=== PATIENT | male | born 1970 | race Caucasian/White ===

== ENCOUNTER 2024-05-15 18:30 | Inpatient (IN) | payer OTHER ==
[2024-05-15 21:16] VITALS: BMI 37.7
[2024-05-15] MEDS: HYDROcodone/Acetaminophen 10/325 mg Tablet PO PRN (22:04)
[2024-05-15] MEDS: Lactated Ringer's 1,000 ML IV SCH (22:05)
[2024-05-16] MEDS: Pantoprazole DR 40 MG TAB PO SCH ×2 (00:23→08:01)
[2024-05-16 05:54] LABS: Hematocrit 42.3 % (42.0-52.0); Hemoglobin 13.3 g/dL (14.0-18.0); Mean Corpuscular HGB CONC 31.4 g/dL (32.0-36.0); Mean Corpuscular Hemoglobin 29.8 pg (27.0-31.0); Mean Corpuscular Volume 94.6 fL (78.0-98.0); Mean Platelet Volume 9.8 fL (7.4-10.4); Platelet Count 185 10x3/uL (130-400); RBC Distribution Width 15.2 % (11.5-14.5); Red Blood Cell (RBC) Count 4.47 mill/uL (4.70-6.10)
[2024-05-16 06:04] LABS: Anion Gap 10 mmol/L (10-20); BUN (Urea Nitrogen) 19 mg/dL (8.4-25.7); Calc. Creatinine Clearance 87 mL/min (70-130); Calcium 9.3 mg/dL (7.8-10.44); Carbon Dioxide 27 mmol/L (22-29); Chloride 103 mmol/L (98-107); Estimated GFR 67; Glucose 129 mg/dL (70-105); Potassium 4.3 mmol/L (3.5-5.1); Sodium 136 mmol/L (136-145)
[2024-05-16 06:45] LABS: Anisocytosis MODERATE=16-30 cells HPF (0-5); Band 6 % (5-11); Burr Cells MODERATE= 6-15 cells HPF (0-1); Eosinophils 2 % (0-10); Lymphocytes 19 % (21-51); Macrocytosis SLIGHT = 6-15 cells HPF (0-5); Neutrophil 68 % (42-75); Ovalocytes SLIGHT = 2-5 cells HPF (0-1); Platelet Adequacy Comment Platelets Normal; Poikilocytosis SLIGHT = 6-15 cells HPF (0-5); Polychromasia SLIGHT = 2-3 cells HPF (0-2); Smudge Cells 7.8 %
[2024-05-16] MEDS: Morphine 2 MG/ML VIAL SLOW IVP SCH (10:35)
[2024-05-16 11:13] VITALS: BMI 37.7
[2024-05-16] MEDS: Ondansetron PF 4 MG/2 ML Vial IVP PRN (20:08)
[2024-05-17] MEDS: Acetaminophen 325 MG TAB PO PRN (02:32)
[2024-05-17] MEDS: Sodium Chloride 0.9% 1,000 ML IV SCH (08:55)
[2024-05-17 12:14] VITALS: BP 124/77; TEMP 97.8
== END 2024-05-17 17:33 | DRG 841 ==
LOC: EEVIPCON → 2SW 20:55 → OBSVTOIN 05-16 15:35
PROVIDERS: ADMIT Family Medicine; ATTEND Internal Medicine
DX: C92.10 Chronic myeloid leukemia, BCR/ABL-positive, not having achieved remission (principal); N17.9 Acute kidney failure, unspecified; E87.5 Hyperkalemia; E03.9 Hypothyroidism, unspecified; I10 Essential (primary) hypertension; Z79.899 Other long term (current) drug therapy; Z88.8 Allergy status to other drugs, medicaments and biological substances; I25.10 Atherosclerotic heart disease of native coronary artery without angina pectoris; J44.9 Chronic obstructive pulmonary disease, unspecified; M10.9 Gout, unspecified; E78.5 Hyperlipidemia, unspecified; Z90.89 Acquired absence of other organs; Z90.49 Acquired absence of other specified parts of digestive tract; Z98.890 Other specified postprocedural states; Z88.0 Allergy status to penicillin; E86.0 Dehydration; I44.0 Atrioventricular block, first degree; I11.0 Hypertensive heart disease with heart failure; I50.9 Heart failure, unspecified; Z55.6 Problems related to health literacy; Z79.51 Long term (current) use of inhaled steroids
CPT/HCPCS: 36415; 36416; 80048; 80053; 83690; 84550; 85025; 85060; 93005; 96374; 96375; G0378; J1815; J2272; J2405; J7050; J7120; J7999; Q0162